=== PATIENT | female | born 2000 | race Caucasian/White ===

== ENCOUNTER 2024-03-09 14:00 | Emergency (ER) | payer OTHER, SELFPAY ==
--- NOTE | ~2024-03-09 | XR_ITS ---
EXAMINATION: XR chest 2V DATE: 03/09/2024 14:58 INDICATION: Cough. Wheezing. TECHNIQUE: Frontal and lateral views of the chest were obtained. COMPARISON: Chest 2 views 10/24/2006 FINDINGS: There is no pneumonia, pleural effusion, or pneumothorax. The heart size is normal. IMPRESSION: 1. No acute cardiopulmonary disease. Reviewed, dictated and finalized at location E.
[2024-03-09 14:06] VITALS: BP 138/79; PULSE 110; RESP 18; TEMP 37.1; O2SAT 97
--- NOTE | 2024-03-09 14:45 | ED.GENADULT ---
HPI - General Adult General Chief complaint: Urogenital-Female Stated complaint: Poss UTI/sob Time Seen by Provider: 03/09/24 14:27 Source: patient, RN notes reviewed and old records reviewed Mode of arrival: ambulatory Limitations: no limitations History of Present Illness HPI narrative: 23-year-old female to Express Care with complaint urinary frequency, suprapubic pain, ,dark urine, retention. Patient also endorsing dry cough for 2 days. Patient reports history of bronchitis and tobacco use. Patient denies chest pain, shortness of breath, fever. Patient able to tolerate fluids by mouth. respirations even and nonlabored. Patient in no acute distress upon arrival. Related Data Allergies Allergy/AdvReac Type Severity Reaction Status Date / Time amoxicillin Allergy Unknown Skin Verified 03/09/24 14:13 Reaction Review of Systems Review of Systems: All systems reviewed & are unremarkable except as noted in HPI and below Constitutional: Constitutional: Reports as per HPI and Denies fever(s) Eyes: Eyes: Reports no additional eye complaints ENT: Reports system reviewed and no additional complaints, except as documented Cardiovascular: Cardiovascular: Reports no additional cardiovascular complaints, Denies chest pain and Denies dyspnea Respiratory: Respiratory: Reports no additional respiratory complaints, Reports cough, Reports pain with cough and Denies dyspnea Genitourinary: Genitourinary: Reports as per HPI, Reports nocturia, Reports dysuria, Reports flank pain and Reports urinary urgency Musculoskeletal: Musculoskeletal: Reports no additional musculoskeletal complaints Neurologic: Reports system reviewed and no additional complaints, except as documented Psychiatric: Psychiatric: Reports no additional psychiatric complaints PMFSH Comments At the time of my signature, I reviewed and agree with the nursing past medical, surgical, social, and family history. There is no relevant family history pertinent to the patient complaint. Exam Const: General: cooperative, no acute distress, alert, ill appearing acutely, tired appearing, uncomfortable and well nourished Nutritional Appearance: well nourished Orientation/consciousness: patient oriented x3 Limitations: no limitations HENMT: Head: normal to inspection Ears: external ears normal Face/Nose/Sinus: Normal external nose present, Normal nares present, normal facial exam, No erythema and No edema Face and sinus: normal facial exam, no erythema and no edema Mouth: Yes Normal oral and palatal mucosa present Throat: posterior oropharynx abnormal erythema Eyes: General: appearance normal, both eyes and all related structures Neck: Neck: normal visual inspection, full ROM and no meningeal signs Lymphatic: no lymphadenopathy noted and no lymphedema noted Chest: Chest palpation & inspection: normal inspection of the chest Resp: Effort & Inspection: normal respiratory effort and able to speak in complete sentences Auscultation: wheezes expiratory wheezes, scattered wheezes and throughout Cardio: Jugular venous distension: no JVD Rate: regular rate Rhythm: regular rhythm : General: Yes no CVA tenderness Back/Spine/Pelvis: Cervical Spine: cervical ROM normal Skin: General skin exam: normal color, no rashes or lesions noted and turgor normal Neuro: General: patient oriented x3, gait normal, moves all extremities and no meningeal signs Speech: normal speech Gait exam (Neuro): Normal gait present Extrem: General: normal to inspection, full ROM and capillary refill normal Psych: Appearance: grossly normal and well kempt Course Course Emergency Course: Some parts of this dictation were generated by voice recognition software and may contain typographical and/or grammatical inaccuracies. Level of Care: Express Care Visit Vital Signs Vital signs: Vital Signs Temperature 37.1 C 03/09/24 14:06 Pulse Rate 110 H 03/09/24 14:06 Respiratory Rate
== END 2024-03-09 15:48 | disposition home or self-care (01) ==
PROVIDERS: Emergency Provider Nurse Practitioner Family
DX: N39.0 Urinary tract infection, site not specified (principal)
CPT/HCPCS: 71046; 81003; 81025; 87086; 99203; G0463

== ENCOUNTER 2024-04-22 16:45 | Emergency (ER) | payer OTHER, SELFPAY ==
[2024-04-22 17:01] VITALS: BP 116/59; PULSE 89; RESP 16; TEMP 36.4; O2SAT 98
--- NOTE | 2024-04-22 17:54 | ED.SKABFB ---
HPI - Skin/Abscess/Foreign Bdy General Chief complaint: Skin/Abscess/Foreign Body Stated complaint: left foot toe bee sting Time Seen by Provider: 04/22/24 17:20 Source: patient, RN notes reviewed and old records reviewed Mode of arrival: ambulatory Limitations: no limitations History of Present Illness HPI narrative: 24 year old female who presents to [facility] care accompanied by friend with complaints of stepping on a bee 2 days ago and was stung under the 2nd toe on the sole of her left foot which continues to have redness and swelling. Patient reports concern because redness has increased to the top of her left foot with her left 2nd toe swollen and red also. Patient has no open lesions on foot or toe, has not tried any OTC medications or applied ice to foot. Patient denies any shortness of breath or any difficulty swallowing, complaint: insect bite/sting Onset (ago): day(s) (2) Location: L foot Severity scale (1-10): 4 Treatments prior to arrival: none Related Data Allergies Allergy/AdvReac Type Severity Reaction Status Date / Time amoxicillin Allergy Unknown Skin Verified 03/09/24 14:13 Reaction Review of Systems Review of Systems: CONSTITUTIONAL: Denies fever, chills, or sweats. CARDIOVASCULAR: Denies chest pain, palpitations, or edema. RESPIRATORY: Denies cough or dyspnea. GASTROINTESTINAL: Denies abdominal pain, nausea, vomiting SKIN: Reports redness and swelling to her left 2nd toe extending to the top of her left foot Denies purulent drainage, vesicles, bullae, numbness,or pain beyond proportion MUSCULOSKELETAL: Denies myalgia. NEUROLOGIC: Denies headache, numbness All systems reviewed & are unremarkable except as noted in HPI and below PMFSH Past Medical History Medical History (Updated 04/24/24 @ 18:39 by Rosi Gerard NP) Bronchitis History of dental problems Social History Social History (Updated 04/24/24 @ 18:41 by Rosi Gerard NP) Smoking status: Never smoker Alcohol intake: current Alcohol use details: social Substance use type: does not use Gender identity (if verbalized by the patient): Female Comments At time of signature, agree with nursing past medical, surgical, social and family history. There is no relevant family history pertinent to the presenting complaint Exam Narrative: GENERAL: Well-appearing, well-nourished, and in no acute distress. HEAD: Normocephalic, atraumatic. EYES: PERRLA and EOMI. ENT: Nares clear, no rhinorrhea or epistaxis. Mucous membranes moist. NECK: Supple.no lymphadenopathy CHEST: Clear to auscultation. No respiratory distress.SAO2 98% on room HEART: Regular rate and rhythm. No murmur heard. Normal peripheral pulses. ABDOMEN: Soft, nontender, nondistended, normal active bowel sounds. EXTREMITIES: Normal range of motion. No edema.minimal edema to left 2nd toe SKIN: Warm, dry. Erythema, tenderness, no acute warmth noted, No vesicles, necrosis,no ecchymosis, to left 2nd toe extending to dorsal aspect of left distal foot NEURO: No focal deficits. Alert and oriented x3. Course Course Emergency Course: Patient is aware of diagnosis, understands and agrees to treatment plan. Anticipatory guidance given. Patient agrees to follow-up as directed and is aware of reasons to seek care at the emergency department. Portions of this record may have been created with voice recognition software Level of Care: Express Care Visit Vital Signs Vital signs: Vital Signs Temperature 36.4 C L 04/22/24 17:01 Pulse Rate 89 04/22/24 17:01 Respiratory Rate 16 04/22/24 17:01 Blood Pressure 116/59 L 04/22/24 17:01 Pulse Oximetry 98 04/22/24 17:01 Oxygen Delivery Room Air 04/22/24 17:01 Temperature 36.4 C L 04/22/24 17:01 Pulse Rate 89 04/22/24 17:01 Respiratory Rate 16 04/22/24 17:01 Blood Pressure 116/59 L 04/22/24 17:01 Pulse Oximetry 98 04/22/24 17:01 Oxygen Delivery Room Air 04/22/24 17:01 Reviewed
== END 2024-04-22 18:04 | disposition home or self-care (01) ==
PROVIDERS: Emergency Provider Registered Nurse
DX: L03.032 Cellulitis of left toe (principal); L03.116 Cellulitis of left lower limb; T63.441A Toxic effect of venom of bees, accidental (unintentional), initial encounter
CPT/HCPCS: 99213; G0463

== ENCOUNTER 2025-01-07 15:21 | Emergency (ER) | payer OTHER, SELFPAY ==
[2025-01-07 15:25] VITALS: BP 134/76; PULSE 76; RESP 16; TEMP 36.4; O2SAT 100
--- NOTE | 2025-01-07 16:57 | PC.NURSE ---
1650 Went to pt to room to update on wait and pt not in room. Looked for pt in waiting area and bathrooms Pt not located and staff not informed of pt leaving.
--- OUTSIDE RECORDS SUMMARY | 2025-01-07 17:20 | XMS_ITS | Referral Summary ---
Author Organization [place] [id number] [facility] Address [address] [place] [address] Care Team Providers Care Clay Puddler Name Role Phone No, Physician Primary Care Provider [phone] Allergies Active Allergy Reactions Criticality Noted Date Comments Amoxicillin Unknown 07/30/2022 Medications No known medications Social History Tobacco Use Types Packs/Day Years Used Date Smoking Tobacco: Every Day Cigarettes Smokeless Tobacco: Never Tobacco Cessation:Ready to Q uit: Not Asked; Counseling Given: Not Answered Alcohol Use Standard Drinks/Week Comments Not Currently 0 (1 standard drink = 0.6 oz pur e alcohol) Personal Safety Answer Date Recorded Have you ever been in or are you currently in a harmful physical or emotional relationship or is someone making you feel afraid or unsafe? 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 Gender Identity Not on file Sexual Orientation Not on file Last Filed Vital Signs Vital Sign Reading Time Taken Comments Blood Pressure 140/83 06/01/2024 10:39 PM CDT Pulse 109 06/01/2024 10:39 PM CDT Temperature 36.7 C (98 F) 06/01/2024 10:39 PM CDT Respiratory Rate 18 06/01/2024 10:39 PM CDT Oxygen Saturation 98% 06/01/2024 10:39 PM CDT Inhaled Oxygen Concentration - - Weight 86.2 kg (190 lb) 06/01/2024 10:39 PM CDT Height 157.5 cm (5' 2 ) 03/23/2024 6:25 PM CDT Body Mass Index 34.75 03/23/2024 6:25 PM CDT Plan of Treatment Not on file Insurance [facility] Care Teams Clay Puddler Relationship Specialty Start Date End Date No, Physician PCP - General 12/29/23
--- OUTSIDE RECORDS SUMMARY | 2025-01-07 17:20 | XMS_ITS | Clinical Summary ---
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 Gender Identity Not on file Sexual Orientation Not on file Obstetrics History Last Filed Vital Signs Vital Sign Reading [...] 03/23/2024 6:25 PM CDT Plan of Treatment Health Maintenance Due Date Last Done Comments Cervical Cancer Screening 2002 Depression Screening 2002 Hepatitis C Screening 2002 Pneumococcal vaccine <65 (1 of 1 - PPSV23) 2008 04/17/2003, 2002, 2002, Additional history exists HPV Vaccines (1 - 3-dose series) 2017 Regular Well Visit/Exam 18-64 2020 DTaP/Tdap/Td Vaccine (6 - Td or Tdap) 06/27/2023 06/27/2013, 06/21/2006, 2002, Additional history exists Influenza Vaccine (#1) 2024 Hepatitis B Screening Completed 04/17/2003 , 2002, 2002, Additional history exists Varicella Vaccines Completed 03/03/2016, 06/21/2006 Meningococcal B Vaccine Completed 05/23/2018, 04/[address] [place] [address] MEDICAID [facility] Care Teams Hop Sorter Relationship Specialty Start Date End Date No, Physician PCP - General 12/29/23
== END 2025-01-07 16:50 | disposition left against medical advice (07) ==
PROVIDERS: Emergency Provider Nurse Practitioner Family
DX: Z53.21 Procedure and treatment not carried out due to patient leaving prior to being seen by health care provider (principal)
CPT/HCPCS: 99199